=== PATIENT | male | born 1960 | race Caucasian/White ===

== ENCOUNTER 2022-11-21 08:03 | Emergency (ER) | payer SELFPAY ==
--- OUTSIDE RECORDS SUMMARY | 2022-11-21 08:05 | XMS REPORT | Continuity of Care Document ---
:1960 Author Organization [facility] t Address [address] Ha [address] [place] [id number] Care Team Providers Name Role Phone EMILY Attending Clinician Unavailable ROSAREEN_JUAN Admitting Clinician Unavailable Problems This patient has no known problems. Allergies, Adverse Reactions, Alerts This patient has no known allergies or adverse reactions. Medications This patient has no known medications. Procedures This patient has no known procedures. Encounters Start End Encounter Admission Attending Care Care Encounter Source Date/Time Date/Time Type Type Clinicians Facility Department ID 2021-12-15 2021-12-15 Outpatient [facility] [id number]- [place] 05:46:00 05:46:00 DAINA [id number] [facility] 2020-10-12 2020-10-12 Outpatient [facility] [id number]- [place] 09:31:00 09:31:00 DAINA [id number] [facility] Results This patient has no known results.
[2022-11-21] MEDS ORDERED: KETOROLAC 30 MG/ML INJ ONE (09:34)
[2022-11-21] MEDS ORDERED: CLINDAMYCIN 900MG/D5W 900 MG/50 ML IVPB IV ONE (09:34)
--- NOTE | 2022-11-21 10:46 | ER ---
Nurse's Notes [facility] Name: Waylon Swenson Sr Age: 62 yrs Sex: Male : 1960 Arrival Date: 11/21/2022 Time: 08:11 Bed 9 Private MD: Diagnosis: Acute gingivitis;Dental caries, unspecified Presentation: 11/21 08:35 Chief complaint: Patient states: dental pain that began 1 week ago. Pt reports he has ss been taking Amoxicillin as prescribed by an online doctor. Has two days left of course and does not feel like it is helping. Coronavirus screen: Client denies travel out of the [place] in the last 14 days. Ebola Screen: Patient denies exposure to infectious person. Patient denies travel to an Ebola-affected area in the 21 days before illness onset. Initial Sepsis Screen: Does the patient meet any 2 criteria? No. Patient's initial sepsis screen is negative. Does the patient have a suspected source of infection? No. Patient's initial sepsis screen is negative. Risk Assessment: Do you want to hurt yourself or someone else? Patient reports no desire to harm self or others. Onset of symptoms was November 14, 2022. 08:35 Method Of Arrival: Ambulatory ss 08:35 Acuity: JOSE 4 ss Triage Assessment: 11:09 General: Appears in no apparent distress. Behavior is calm, cooperative, appropriate ap3 for age. Pain: Complains of pain in lower left second bicuspid (#20) and lower left first molar (#19) and lower left second molar (#18). EENT: Reports pain in lower left second bicuspid (#20) and lower left first molar (#19) and lower left second molar (#18). Neuro: Level of Consciousness is awake, alert, obeys commands, Oriented to person, place, time, situation, Gait is steady, Speech is normal. Cardiovascular: Patient's skin is warm and dry. Respiratory: Airway is patent Respiratory effort is even, unlabored, Respiratory pattern is regular, symmetrical. Historical: - Allergies: 08:37 No Known Allergies; ss - Home Meds: 08:40 None [Active]; ss - PMHx: 08:40 None; ss - Immunization history:: Client reports having NOT received the Covid vaccine. - Social history:: Smoking status: Patient reports the use of cigarette tobacco products, smokes one pack cigarettes per day. Screenin:09 [facility] ED Fall Risk Assessment (Adult) History of falling in the last 3 months, ap3 including since admission. Abuse screen: Denies threats or abuse. Nutritional screening: No deficits noted. Tuberculosis screening: No symptoms or risk factors identified. Vital Signs: 08:37 Pulse 100; Resp 16; Temp 97.7(O); Pulse Ox 98% on R/A; Weight 77.11 kg; Height 5 ft. 9 ss in. (175.26 cm); Pain 8/10; 08:40 BP 130 / 96; ss 08:37 Body Mass Index 25.10 (77.11 kg, 175.26 cm) ED Course: 08:11 Patient arrived in ED. am2 08:23 Brian Calvert PA is PHCP. [facility] 08:23 Amy Downing MD is Attending Physician. m 08:37 Triage completed. ss 08:37 Arm band placed on right wrist. ss 09:03 Inserted saline lock: 22 gauge in left antecubital area, using aseptic technique. rs5 09:15 Elizabeth Sifuentes, SEBASTIEN is Primary Nurse. ap3 10:46 Chapo Eduardo DDS is Referral Physician. m 11:10 No provider procedures requiring assistance completed. IV discontinued, intact, ap3 bleeding controlled, No redness/swelling at site. Pressure dressing applied. 11:11 Patient has correct armband on for positive identification. ap3 Administered Medications: 09:55 Drug: Clindamycin 900 mg Route: IVPB; Infused Over: 30 mins; Site: right antecubital; ap3 11:09 Follow up: IV Status: Completed infusion ap3 09:55 Drug: Ketorolac 15 mg Route: IVP; Site: right antecubital; ap3 11:09 Follow up: Response: No adverse reaction; Pain is decreased ap3 Medication: 11:11 VIS not applicable for this client. ap3 Outcome: 10:46 Discharge ordered by . jmm 11:10 Discharged to home ambulatory. ap3 11:10 Condition: good 11:10 Discharge instructions given to patient, Instructed on discharge instructions, follow up and referral plans. medication usage, Demonstrated understanding of instructions, follow-up care, medications, Prescriptions given X 4. 11:11 Patient left the ED. ap3 Signatures: Brian Calvert PA PA jmm Smirch, Shelby, RN RN ss Moreno, Amanda am2 Elizabeth Sifuentes RN RN ap3 Stephen Grace rs5
--- NOTE | 2022-11-21 10:47 | EDPHYS ---
Physician Documentation [facility] Name: Waylon Swenson Sr Age: 62 yrs Sex: Male : 1960 Arrival Date: 11/21/2022 Time: 08:11 Bed 9 Private MD: ED Physician Amy Downing HPI: 11/21 10:40 This 62 yrs old Male presents to ER via Ambulatory with complaints of Toothache. jmm 10:40 The patient presents with pain, swelling. Onset: The symptoms/episode began/occurred jmm gradually, 6 day(s) ago. This is a 62-year-old male with no chronic medical conditions the presents emerged part with complaints of left lower dental pain, swelling. Patient states symptoms began approximately 6 days ago and was prescribed amoxicillin with no relief. Denies fever. Denies shortness of breath.. Historical: - Allergies: 08:37 No Known Allergies; ss - Home Meds: 08:40 None [Active]; ss - PMHx: 08:40 None; ss - Immunization history:: Client reports having NOT received the Covid vaccine. - Social history:: Smoking status: Patient reports the use of cigarette tobacco products, smokes one pack cigarettes per day. ROS: 10:40 Constitutional: Negative for fever, chills, and weight loss. jmm 10:40 ENT: Positive for dental pain. 10:40 All other systems are negative. Exam: 10:40 Constitutional: This is a well developed, well nourished patient who is awake, alert, jmm and in no acute distress. Head/Face: atraumatic. Eyes: EOMI, no conjunctival erythema appreciated 10:40 Neck: Trachea midline, Supple Chest/axilla: Normal chest wall appearance and motion. Cardiovascular: Regular rate and rhythm. No edema appreciated Respiratory: Normal respirations, no respiratory distress appreciated Abdomen/GI: Non distended Back: Normal ROM Skin: General appearance color normal MS/ Extremity: Moves all extremities, no obvious deformities appreciated, no edema noted to the lower extremities Neuro: Awake and alert Psych: Behavior is normal, Mood is normal, Patient is cooperative and pleasant 10:40 ENT: Dental exam: gum swelling, that is moderate, specifically in the lower left second molar (#18), lower left first molar (#19) and lower left second bicuspid (#20), No submandibular tenderness or swelling appreciated. Vital Signs: 08:37 Pulse 100; Resp 16; Temp 97.7(O); Pulse Ox 98% on R/A; Weight 77.11 kg; Height 5 ft. 9 ss in. (175.26 cm); Pain 8/10; 08:40 BP 130 / 96; ss 08:37 Body Mass Index 25.10 (77.11 kg, 175.26 cm) ss MDM: 08:40 Patient medically screened. [facility] 10:45 Data reviewed: vital signs, nurses notes. Counseling: I had a detailed discussion with javi the patient and/or guardian regarding: the historical points, exam findings, and any diagnostic results supporting the discharge/admit diagnosis, the need for outpatient follow up, to return to the emergency department if symptoms worsen or persist or if there are any questions or concerns that arise at home. ED course: Patient is alert and nontoxic in appearance in the ED. I do not suspect abscess or Zion's angina. Patient advised to follow-up with dentist or oral surgery for further evaluation otherwise given strict return precautions. Patient understood and agrees plan of care.. 11/21 08:40 Order name: Saline Lock; Complete Time: 09:03 [facility] Administered Medications: 09:55 Drug: Clindamycin 900 mg Route: IVPB; Infused Over: 30 mins; Site: right antecubital; ap3 11:09 Follow up: IV Status: Completed infusion ap3 09:55 Drug: Ketorolac 15 mg Route: IVP; Site: right antecubital; ap3 11:09 Follow up: Response: No adverse reaction; Pain is decreased ap3 Disposition: 18:37 STAFF ATTESTATION STATEMENT: I was immediately available onsite in the emergency sd2 department for consultation in the care of this patient. I did not see or examine this patient. Amy Downing MD. Disposition Summary: 11/21/22 10:46 Discharge Ordered Location: Home [facility] Condition: Stable [facility] Diagnosis - Acute gingivitis jmm - Dental caries, unspecified jmm Followup: [facility] - With: Chapo Eduardo DDS - When: 2 - 3 days - Reason: Recheck today's complaints, Continuance of care, Re-evaluation by your physician Discharge Instructions: - Discharge Summary Sheet [facility] - Dental Caries, Adult jmm Forms: - Medication Reconciliation Form [facility] - Thank You Letter [facility] - Antibiotic Education [facility] - Prescription Opioid Use [facility] Prescriptions: - Peridex 0.12 % Mucous Membrane mouthwash - place 15 milliliter by MUCOUS MEMBRANE route 2 times per day after brushing [facility] teeth, swish in mouth for 30 seconds then spit out; 1 bottle; Refills: 0, Product Selection Permitted - Clindamycin HCl 300 mg Oral Capsule - take 1 capsule by ORAL route every 6 hours for 10 days; 40 capsule; Refills: 0, [facility] Product Selection Permitted - Pepcid 20 mg Oral Tablet - take 1 tablet by ORAL route every 12 hours for 10 days; 20 tablet; Refills: 0, [facility] Product Selection Permitted - Diclofenac Sodium 75 mg Oral Tablet Sustained Release - take 1 tablet by ORAL route 2 times per day; 30 tablet; Refills: 0, Product [facility] Selection Permitted Signatures: Brian Calvert PA PA jmm Smirch, Shelby, RN RN ss Prokisch, Amanda, RN RN ap3 Amy Downing MD MD sd2
[2022-11-21 11:35] VITALS: TEMP 97.7; O2SAT 98
[2022-11-21 11:45] VITALS: BP 130/96
== END 2022-11-21 11:11 | disposition home or self-care (01) ==
LOC: ER 08:03
DX: K05.00 Acute gingivitis, plaque induced (principal); K02.9 Dental caries, unspecified; F17.210 Nicotine dependence, cigarettes, uncomplicated
CPT/HCPCS: 96365; 96375; 99283